=== PATIENT | male | born 1975 | race Caucasian/White ===

== ENCOUNTER 2018-11-21 18:00 | Outpatient (REF) | payer MEDICAID, SELFPAY ==
[2018-11-21 21:53] LABS: Abs Immature Grans 0.02 k/cumm (0.0-0.09); Absolute Basophil Count 0.05 k/cumm (0.0-0.2); Absolute Eosinophil Count 0.19 k/cumm (0.0-0.7); Absolute Lymphocyte Count 3.34 k/cumm (1.2-3.4); Absolute Monocyte Count 0.58 k/cumm (0.11-0.7); Basophils % 0.5; Eosinophils % 1.9; HCT 45.5 % (40.0-50.0); HGB 15.6 g/dL (13.5-17.5); Immature Grans % 0.2; Lymphocytes % 32.8; Mean Corp. HGB Concentration 34.3 g/dL (32.0-36.0); Mean Corpuscular Hemoglobin 30.4 pg (27.0-33.0); Mean Corpuscular Volume 88.7 fL (80-95); Mean Platelet Volume 10.5 fL (8.0-11.0); Monocytes % 5.7; Neutrophils % 58.9; Platelet Count 268 x1000/uL (130-400); RBC 5.13 m/cumm (4.50-6.00); RBC Distribution Width 13.9 % (11.8-14.1); White Blood Cell Count 10.18 k/cumm (4.4-10.8)
[2018-11-21 21:59] LABS: ALT 28 U/L (12-78); AST 19 U/L (15-37); Albumin 3.7 g/dL (3.4-5.0); Alkaline Phosphatase 69 U/L (46-116); Anion Gap 9.1 mmol/L (3-11); BUN 15 mg/dL (7-18); Bilirubin, Total 0.3 mg/dL (0.2-1.0); CO2 28.9 mmol/L (21.0-32.0); CREATININE 1.09 mg/dL (0.70-1.30); Calcium 8.9 mg/dL (8.5-10.1); Chloride 104 mmol/L (98-107); Glucose 74 mg/dL (70-100); LDH 147 U/L (85-227); Lipase 87 U/L (73-393); Potassium 4.3 mmol/L (3.5-5.1); Sodium 142 mmol/L (136-145); Total Protein 7.1 g/dL (6.4-8.2)
== END 2018-11-21 18:20 ==
LOC: NCHCN 18:00
PROVIDERS: PCP Nurse Practitioner Family; Visit Provider Specialist/Technologist Athletic Trainer
DX: R10.32 Left lower quadrant pain (principal)
CPT/HCPCS: 80053; 83690; 83615; 85025

== ENCOUNTER 2019-04-15 16:48 | Emergency (ER) | payer MEDICAID, SELFPAY ==
[2019-04-15] VITALS (26 sets, daily range): BP systolic 106–158; BP diastolic 82–107; PULSE 72–84; RESP 12; TEMP 37; O2SAT 92–97
--- NOTE | 2019-04-15 17:11 | W.ED.GENAD ---
Discharge Plan Disposition Patient Disposition: HOME Condition: Fair Discharge Details Chief Complaint: Nk/Back Pain Clinical Impression: Chest wall contusion, Incidental pulmonary nodule, Adrenal nodule Primary Care Provider: Aaron Alonzo ED Provider: Laurita Mosqueda Discharge Instructions Instructions: Contusion in Adults (ED) Additional Instructions: Encourage hydration. Tylenol and ibuprofen as needed for discomfort. Gentle stretching and frequent ambulation. Ice to affected area. In regard to the pulmonary nodules, you will need to follow-up in this with a primary care. Please follow-up with them in the next week for reevaluation of your trauma. There was plaque noted in your aorta, you will need to follow-up with your primary care to discuss further testing and possible lifestyle modifications. Stop smoking. If you develop fever/chills, increased pain, shortness of breath, difficulty breathing or other new/worsening symptoms please seek care urgently once again. Referrals: Aaron Alonzo [Primary Care Provider] - Medical Decision Making Patient is a 43 year old male presenting today for evaluation of traumatic injury. He reports that this morning around 7:00, he was walking out of his house and he fell through his deck. States that he fell proximate 2.5 feet into the deck, landing his right side. He has a 12 cm linear abrasion to the right lateral side of the lower chest wall extending into the abdomen. He is tender along this area as well as in the right upper quadrant. No peritoneal findings. Lung sounds are clear in all frankel. He is nontoxic-appearing. He denies other injuries from the incident. Denies loss of conscious, did not strike his head. Denies any pain in his neck. No injury to any extremities. No change in bowel or bladder habits. Denies any nausea or vomiting. Is also endorsing pain in the back primarily near the area of T6-T10. Patient reports that this is chronic but seems slightly worse today since the incident. Denies any shortness of breath. Was able to go to work today. Did not take anything for his discomfort. This patient is having tenderness in the right upper quadrant as well as the chest, plan to obtain imaging. Contacted by radiologist is concerned for small mural density anterior proximal descending thoracic aorta medially distal to the arch. Advised that this may be plaque with possible traumatic injury to the wall of the aorta cannot be excluded. Recommended correlation with COLIN versus CT in 24 hours. Plan to consult with trauma Also noted on the CT here multiple pulmonary nodules as well as nodule in the left adrenal. Discussed these findings with the patient. He is an active smoker, smokes 1.5 packs/day. Advised he will need follow-up with this with primary care and likely have repeat imaging at the advisement of radiologist Spoke with Dr. Smart who reviewed the images with his radiologist. They advised that this is a plaque. They advised that there is no inflammation around this and was actually in the wall of the aorta. He advised it appears nontraumatic and that they would not recommend any reimaging. They did advise the patient to have his triglycerides checked and follow-up for routine health maintenance Discussed recommendation of trauma surgeon and radiologist at [facility] with the patient. I encouraged hydration. He will follow-up regarding the nodules in the lung as well as the adrenal gland. He will follow-up to have routine health maintenance as advised by trauma surgeon. I encouraged smoking cessation. In regard to his contusion, encourage rest, ice, elevation. Advised he will likely be quite stiff tomorrow and encouraged gentle stretching and frequent ambulation. He was given return precautions. All his questions and concerns were addressed and he is in agreement with this plan. Patient ambulated out of the department and appears quite comfortable. HPI General Mode of arrival: ambulatory. Date/Time Provider Initiated Documentation: 04/15/19 17:11. Limitations to Documentation: no limitations. Information obtained by: patient and RN notes reviewed. History of Present Illness 43 year old M presents to the emergency department with the chief complaint of right rib and RUQ pain after trauma, described as moderate, Quality is described as aching, and is localized to the chest, back and abdomen. Patient reports no radiation. Patient started experiencing this hour(s) (0700) and it has been constant. Immobilization improves symptom(s), Movement worsens symptoms . Patient notes chest pain (right lower side associated with trauma) and rash (abrasion right side of chest); denies cough, diaphoresis, fever/chills, headaches, loss of appetite, nausea/vomiting (had immediately after, since resolved), shortness of breath and weakness. Patient did receive the following treatments prior to arrival, none Related Data Allergies Allergy/AdvReac Type Severity Reaction Status Date / Time No Known Allergies Allergy Unverified 06/12/14 14:15 Review of Systems Constitutional Reports as per HPI, Denies chills, Denies fatigue, Denies fever(s), Denies headache(s) and Denies weakness Eyes Reports as per HPI, Denies blurry vision, Denies change in vision and Denies loss of vision ENT Denies abnormal hearing and Denies headache(s) Cardiovascular Reports as per HPI, Reports chest pain, Denies pedal edema, Denies radiating jaw, neck or arm pain, Denies palpitations, Denies dyspnea and Denies dyspnea on exertion Respiratory Reports as per HPI, Denies cough, Denies pain on inspiration, Denies pain with cough, Denies dyspnea and Denies dyspnea on exertion Gastrointestinal Reports as per HPI, Reports abdominal pain (RUQ pain at area of abrasion), Denies nausea and Denies vomiting Genitourinary Reports as per HPI and Denies urinary incontinence Musculoskeletal Reports as per HPI Integumentary/Breasts Reports as per HPI and Reports wounds (abrasion to right side of chest wall) Neurologic Reports as per HPI, Denies abnormal hearing, Denies abnormal movements, Denies abnormal speech, Denies headache(s), Denies lack of coordination, Denies focal weakness, Denies loss of vision, Denies seizure-like activity, Denies paresthesias and Denies weakness Endocrine Denies fatigue and Denies palpitations [facility] Social History Smoking/Tobacco Use Status: Current every day Drug use: Never Exam Const General: cooperative, healthy appearing, comfortable, no acute distress, well developed and well groomed Nutritional Appearance: average body habitus and well nourished Orientation: alert, awake and oriented x3 HENNC Head: normal to inspection, no palpable skull fracture, normocephalic and atraumatic Ears: hearing grossly normal bilaterally, external ears normal and TM's normal bilaterally General nose exam: external nose normal Mouth: oral mucosae normal, lip normal and tongue normal Throat: posterior oropharynx normal Eyes General: appearance normal, both eyes and all related structures Visual Frankel: normal visual frankel by confrontation Alignment and Position: alignment normal Periorbital: periorbital findings normal Eyelids: eyelids normal Conjunctivae: conjunctivae normal Pupils: PERRL EOM: EOM intact bilaterally Neck Neck: normal visual inspection, full ROM, no lymphadenopathy, no meningeal signs, trachea midline and supple Chest Chest: abnormal inspection of the chest (12cm linear area of abrasion right lower chest wall), normal palpation of entire chest wall, no crepitus and localized rib tenderness with anteroposterior compression (tenderness around area of abrasion) Resp Effort & Inspection: normal respiratory effort, able to speak in complete sentences and no respiratory distress Auscultation: clear to auscultation bilaterally, no rales, no rhonchi and no wheezes Cardio Rate: regular rate Rhythm: regular rhythm Heart Sounds: S1 normal and S2 normal GI Inspection: normal to inspection, no abdominal wall ecchymosis, no edema and non-distended Palpation: soft, no hepatosplenomegaly, not firm, no guarding, no pulsatile masses, not rigid and tender in the RUQ; Chavez's sign negative and with no rebound tenderness Auscultation: normal bowel sounds Back/Spine/Pelvis Back: no CVA tenderness Cervical Spine: normal cervical lordosis and cervical ROM normal Thoracic/Lumbar Spine: thoraco-lumbar ROM normal, straight leg raise negative bilaterally, No thoraco-lumbar ROM limited, No thoraco-lumbar spasm and thoracic spinal tenderness (T6-T10) Pelvis: no pain with anterior-posterior compression and no pain with lateral compression Skin Trauma: abrasion (as above) Neuro General: alert, awake, oriented x3, gait normal, tone normal and moves all extremities Cranial Nerves: CN's II-XI intact bilaterally Cognition: normal cognition Speech: speech normal Gait: normal gait Motor: muscle tone normal throughout and strength 5/5 throughout Sensory Exam: no sensory deficits noted (no saddle paresthesias) Extrem General: normal to inspection, full ROM, normal capillary refill, no pedal edema and no calf tenderness Psych Appearance: grossly normal and well kempt Mental Status: mental status grossly normal Speech and Movement: speech and movement normal
--- NOTE | 2019-04-15 17:19 | DI.CT_ITS ---
SYMPTOM/DIAGNOSIS: TRAUMA, PAIN CHEST, ABDOMEN AND PELVIC CT: CT scan of the chest, abdomen and pelvis was performed following the uneventful administration of intravenous contrast material. No priors for comparison. ABDOMEN AND PELVIS: There is diffuse decreased attenuation of the liver suspicious for hepatic steatosis. No evidence of a hepatic mass or laceration is seen. The portal, superior mesenteric and splenic veins are patent. The gallbladder is negative. There is no biliary ductal dilatation. The pancreas and peripancreatic soft tissues are unremarkable as are the spleen and kidneys, ureters and bladder. Reproductive organs are unremarkable. The right adrenal gland is unremarkable. There is a 1.6 by 1.2 cm. hypodense left adrenal nodule. The abdominal aorta is of normal caliber. No significant abdominal or pelvic adenopathy, ascites or pneumoperitoneum is seen. The bowel shows no evidence of obstruction or inflammation. There is a normal retrocecal appendix present. No fracture or dislocation is seen in the lumbar spine. No pelvic fracture is identified. The soft tissues are unremarkable. IMPRESSION: 1. No evidence of acute abdominal or pelvic injury. 2. Decreased attenuation of the liver suggestive of hepatic steatosis. 3. Left adrenal nodule. Please correlate with the patient's clinical history. Follow up examination may be considered for re- evaluation of the left adrenal nodule. This may include a noncontrast CT scan of the abdomen and/or an MRI examination. CHEST: The thoracic aorta is of normal caliber. There is a small area of decreased attenuation along the anterior wall of the descending thoracic aorta (series 7, image 250). The remainder of the thoracic aorta is intact. Heart size is within normal limits. No significant pericardial effusion is seen. No significant thoracic adenopathy, pleural effusion or pneumothorax is identified. The tracheobronchial tree is unremarkable. No focal infiltrates are seen in the lungs. There are several non calcified pulmonary nodules present. The largest is associated with the right minor fissure and measures 0.9 cm. in diameter. There is a 0.7 cm. nodule in the right middle lobe (series 7, image 391). There is a small nodule seen adjacent to the left major fissure and a 0.6 cm. non calcified pulmonary nodule in the left lower lobe (series 7, image 391). No fracture is identified. IMPRESSION: 1. No evidence of acute thoracic injury. 2. Small mural density at the anterior proximal descending thoracic aorta. This may represent non calcified mural plaque. Traumatic injury cannot be excluded. Follow up as clinically appropriate. This may include a follow up CT scan of the chest with contrast in 24 hours or transesophageal echocardiogram. 3. Pulmonary nodules. Following assessment for patient risk factors, a follow up CT scan should be considered in 3-6 months should be considered for re-evaluation.
[2019-04-15] MEDS: MORPHine 10 MG/ML VIAL 2 MG IVP (17:27)
[2019-04-15] MEDS: Normal Saline 1,000 ML 1000 ML IV (17:28)
[2019-04-15] MEDS: Omnipaque 350 MG/ML 100 ML BTL IJ (17:50)
--- NOTE | 2019-04-15 17:58 | ED.GENADUL_ITS ---
Discharge Plan Disposition Patient Disposition: HOME Condition: Fair Discharge Details Chief Complaint: Nk/Back Pain Clinical Impression: Chest wall contusion, Incidental pulmonary nodule, Adrenal nodule Primary Care Provider: Aaron Alonzo ED Provider: Laurita Mosqueda Discharge Instructions Instructions: Contusion in Adults (ED) Additional Instructions: Encourage hydration. Tylenol and ibuprofen as needed for discomfort. Gentle stretching and frequent ambulation. Ice to affected area. In regard to the pulmonary nodules, you will need to follow-up in this with a primary care. Please follow-up with them in the next week for reevaluation of y our trauma. There was plaque noted in your aorta, you will need to follow-up with your primary care to discuss further testing and possible lifestyle modifications. Stop smoking. If you develop fever/chills, increased pain, shortness of breath, difficulty breathing or other new/worsening symptoms please seek care urgently once again. Referrals: Aaron Alonzo [Primary Care Provider] - Medical Decision Making Patient is a 43 year old male presenting today for evaluation of traumatic injury. He reports that this morning around 7:00, he was walking out of his house and he fell through his deck. States that he fell proximate 2.5 feet into the deck, landing his right side. He has a 12 cm linear abrasion to the right lateral side of the lower chest wall extending into the abdomen. He is tender along this area as well as in the right upper quadrant. No peritoneal findings. Lung sounds are clear in all frankel. He is nontoxic-appearing. He denies other injuries from the incident. Denies loss of conscious, did not strike his head. Denies any pain in his neck. No injury to any extremities. No change in bowel or bladder habits. Denies any nausea or vomiting. Is also endorsing pain in the back primarily near the area of T6-T10. Patient reports that this is chronic but seems slightly worse today since the incident. Denies any shortness of breath. Was able to go to work today. Did not take anything for his discomfort. This patient is having tenderness in the right upper quadrant as well as the chest, plan to obtain imaging. Contacted by radiologist is concerned for small mural density anterior proximal descending thoracic aorta medially distal to the arch. Advised that this may be plaque with possible traumatic injury to the wall of the aorta cannot be excluded. Recommended correlation with [facility] versus CT in 24 hours. Plan to consult with trauma Also noted on the CT here multiple pulmonary nodules as well as nodule in the left adrenal. Discussed these findings with the patient. He is an active smoker, smokes 1.5 packs/day. Advised he will need follow-up with this with primary care and likely have repeat imaging at the advisement of radiologist Spoke with Dr. Smart who reviewed the images with his radiologist. They advised that this is a plaque. They advised that there is no inflammation around this and was actually in the wall of the aorta. He advised it appears nontraumatic and that they would not recommend any reimaging. They did advise the patient to have his triglycerides checked and follow-up for routine health maintenance Discussed recommendation of trauma surgeon and radiologist at [facility] with the patient. I encouraged hydration. He will follow-up regarding the nodules in the lung as well as the adrenal gland. He will follow-up to have routine health maintenance as advised by trauma surgeon. I encouraged smoking cessation. In regard to his contusion, encourage rest, ice, elevation. Advised he will likely be quite stiff tomorrow and encouraged gentle stretching and frequent ambulation. He was given return precautions. All his questions and concerns were addressed and he is in agreement with this plan. Patient ambulated out of the department and appears quite comfortable. HPI General Mode of arrival: ambulatory . Date/Time Provider Initiated Documentation: 04/15/19 17:11 . Limitations to Documentation: no limitations . Information obtained by: patient and RN notes reviewed . History of Present Illness 43 year old M presents to the emergency department with the chief complaint of right rib and RUQ pain after trauma, described as moderate, Quality is described as aching, and is localized to the chest, back and abdomen. Patient reports no radiation. Patient started experiencing this hour(s) (0700) and it has been constant. Immobilization improves symptom(s), Movement worsens symptoms . Patient notes chest pain (right lower side associated with trauma) and rash (abrasion right side of chest); denies cough, diaphoresis, fever/chills, headaches, loss of appetite, nausea/vomiting (had immediately after, since resolved), shortness of breath and weakness. Patient did receive the following treatments prior to arrival, none Related Data Allergies Allergy/AdvReac Type Severity Reaction Status Date / Time No Known Allergies Allergy Unverified 06/12/14 14:15 Review of Systems Constitutional Reports as per HPI, Denies chills, Denies fatigue, Denies fever(s), Denies headache(s) and Denies weakness Eyes Reports as per HPI, Denies blurry vision, Denies change in vision and Denies loss of vision ENT Denies abnormal hearing and Denies headache(s) Cardiovascular Reports as per HPI, Reports chest pain, Denies pedal edema, Denies radiating jaw, neck or arm pain, Denies palpitations, Denies dyspnea and Denies dyspnea on exertion Respiratory Reports as per HPI, Denies cough, Denies pain on inspiration, Denies pain with cough, Denies dyspnea and Denies dyspnea on exertion Gastrointestinal Reports as per HPI, Reports abdominal pain (RUQ pain at area of abrasion), Denies nausea and Denies vomiting Genitourinary Reports as per HPI and Denies urinary incontinence Musculoskeletal Reports as per HPI Integumentary/Breasts Reports as per HPI and Reports wounds (abrasion to right side of chest wall) Neurologic Reports as per HPI, Denies abnormal hearing, Denies abnormal movements, Denies abnormal speech, Denies headache(s), Denies lack of coordination, Denies focal weakness, Denies loss of vision, Denies seizure-like activity, Denies paresthesias and Denies weakness Endocrine Denies fatigue and Denies palpitations [facility] Social History Smoking/Tobacco Use Status: Current every day Drug use: Never Exam Const General: cooperative, healthy appearing, comfortable, no acute distress, well developed and well groomed Nutritional Appearance: average body habitus and well nourished Orientation: alert, awake and oriented x3 [facility] Head: normal to inspection, no palpable skull fracture, normocephalic and atraumatic Ears: hearing grossly normal bilaterally, external ears normal and TM's normal bilaterally General nose exam: external nose normal Mouth: oral mucosae normal, lip normal and tongue normal Throat: posterior oropharynx normal Eyes General: appearance normal, both eyes and all related structures Visual Frankel: normal visual frankel by confrontation Alignment and Position: alignment normal Periorbital: periorbital findings normal Eyelids: eyelids normal Conjunctivae: conjunctivae normal Pupils: PERRL EOM: EOM intact bilaterally Neck Neck: normal visual inspection, full ROM, no lymphadenopathy, no meningeal signs, trachea midline and supple Chest Chest: abnormal inspection of the chest (12cm linear area of abrasion right lower chest wall), normal palpation of entire chest wall, no crepitus and localized rib tenderness with anteroposterior compression (tenderness around area of abrasion) Resp Effort & Inspection: normal respiratory effort, able to speak in complete sentences and no respiratory distress Auscultation: clear to auscultation bilaterally, no rales, no rhonchi and no wheezes Cardio Rate: regular rate Rhythm: regular rhythm Heart Sounds: S1 normal and S2 normal GI Inspection: normal to inspection, no abdominal wall ecchymosis, no edema and non-distended Palpation: soft, no hepatosplenomegaly, not firm, no guarding, no pulsatile m asses, not rigid and tender in the RUQ; Chavez's sign negative and with no rebound tenderness Auscultation: normal bowel sounds Back/Spine/Pelvis Back: no CVA tenderness Cervical Spine: normal cervical lordosis and cervical ROM normal Thoracic/Lumbar Spine: thoraco-lumbar ROM normal, straight leg raise negative bilaterally, No thoraco-lumbar ROM limited, No thoraco-lumbar spasm and thoracic spinal tenderness (T6-T10) Pelvis: no pain with anterior-posterior compression and no pain with lateral compression Skin Trauma: abrasion (as above) Neuro General: alert, awake, oriented x3, gait normal, tone normal and moves all extremities Cranial Nerves: CN's II-XI intact bilaterally Cognition: normal cognition Speech: speech normal Gait: normal gait Motor: muscle tone normal throughout and strength 5/5 throughout Sensory Exam: no sensory deficits noted (no saddle paresthesias) Extrem General: normal to inspection, full ROM, normal capillary refill, no pedal edema and no calf tenderness Psych Appearance: grossly normal and well kempt Mental Status: mental status grossly normal Speech and Movement: speech and movement normal
--- NOTE | 2019-04-15 18:21 | NUR.NOTE ---
Nursing Note: 4mg of Morphine administered IVP for break through pain per verbal order from provider.
--- NOTE | 2019-04-15 18:33 | DI.VRAD_ITS ---
Addendum created by Pk Abbott MD on 04/15/2019 6:38:36 PM EDT THIS REPORT CONTAINS FINDINGS THAT MAY BE CRITICAL TO PATIENT CARE. The findings were verbally communicated via telephone conference with Dr. Rausch at 6:37 PM EDT on 04/15/2019. The findings were acknowledged and understood. Initial report created on 04/15/2019 6:33:22 PM EDT EXAM: CT Chest With Contrast EXAM DATE/TIME: 04/15/2019 5:21 PM CLINICAL HISTORY: 43 years old, male; Injury or trauma; Fall; Initial encounter; Blunt trauma (contusions or hematomas); Injury details: Pain to right ribs and ruq TECHNIQUE: Imaging protocol: Axial computed tomography images of the chest with intravenous contrast. Coronal and sagittal reformatted images were created and reviewed. COMPARISON: No relevant prior studies available. FINDINGS: Lungs: Va. truman 8.7 mm nodule abutting the right minor fissure seen best on image 30 of series 4 and image 94 of series 6. 6 mm nodule in the right middle lobe seen best on image 40 of series 4 and image 103 of series 6. 4 mm left lower lobe nodule abutting the major fissure seen best on image 36 of series 4 and image 36 of series 6. 4 mm left lower lobe pulmonary nodule posteriorly at seen best on image 40 of series 4 and image 30 of series 6. Small patchy region of airspace disease in the lingula segment of the left lung. Pleural space: Normal. No pneumothorax. No pleural effusion. Heart: Normal. No cardiomegaly. No pericardial effusion. Aorta: Small mural density anterior proximal descending thoracic aorta immediately distal to the aortic arch without evidence of surrounding fluid. Lymph nodes: Unremarkable. No enlarged lymph nodes. Bones/joints: Degenerative changes of the thoracic spine without acute osseous abnormality. Soft tissues: Unremarkable. IMPRESSION: 1. Small mural density anterior proximal descending thoracic aorta immediately distal to the arch. In view of the lack of atherosclerotic plaque noncalcified mural plaque is possible but traumatic injury to the wall of the aorta cannot be totally excluded. Recommend correlation with transesophageal echocardiogram and followup CT of the chest with contrast in 24 hours. 2. Multiple bilateral pulmonary nodules. For patients at low risk (minimal or absent history of smoking and of other known risk factors), recommend CT at 3-6 months, then consider CT at 18-24 months. For patients at high risk (history of smoking or of other known risk factors), recommend CT at 3-6 months, then CT at 18-24 months. (Howard et al., Fleischner Society, 2017) EXAM: CT Abdomen and Pelvis With Contrast EXAM DATE/TIME: 04/15/2019 5:21 PM CLINICAL HISTORY: 43 years old, male; Injury or trauma; Fall; Initial encounter; Blunt trauma (contusions or hematomas); Injury details: Pain to right ribs and ruq TECHNIQUE: Imaging protocol: Axial computed tomography images of the abdomen and pelvis with intravenous contrast. Coronal and sagittal reformatted images were created and reviewed. COMPARISON: No relevant prior studies available. FINDINGS: ABDOMEN: Liver: There is a diffuse decrease in hepatic parenchymal density, consistent with fatty infiltration. Gallbladder and bile ducts: Normal. No calcified stones. No ductal dilation. Pancreas: Normal. No ductal dilation. Spleen: Normal. No splenomegaly. Adrenals: 15.8 x 12.1 mm the left adrenal nodule. Kidneys and ureters: Normal. No hydronephrosis. Stomach and bowel: Normal. No obstruction. No mucosal thickening. Appendix: No evidence of appendicitis. PELVIS: Bladder: Unremarkable as visualized. Reproductive: Unremarkable as visualized. ABDOMEN and PELVIS: Intraperitoneal space: Normal. No free air. No significant fluid collection. Bones/joints: Degenerative changes of the lumbar spine without acute osseous abnormality. Soft tissues: Unremarkable. Vasculature: Normal. No abdominal aortic aneurysm. Lymph nodes: Normal. No enlarged lymph nodes. IMPRESSION: 1. No current CT evidence of intra-abdominal trauma. 2. Fatty liver changes. Please correlate with the clinical laboratory findings. 3. Left adrenal nodule as described above. Please correlate with patient's clinical history and recommend followup noncontrast CT of the abdomen versus MRI. Dictated and Authenticated by: Pk Abbott MD. Ordering:KORI Shay MD
== END 2019-04-15 22:01 | disposition home or self-care (01) ==
PROVIDERS: Emergency Provider Physician Assistant; PCP Specialist/Technologist Athletic Trainer
DX: S20.211A Contusion of right front wall of thorax, initial encounter (principal); R91.1 Solitary pulmonary nodule; E27.9 Disorder of adrenal gland, unspecified; F17.210 Nicotine dependence, cigarettes, uncomplicated; W13.8XXA Fall from, out of or through other building or structure, initial encounter
CPT/HCPCS: 36415; 74177; 96361; 96374; 99285; 71260; 99284; J2270; J3490

== ENCOUNTER 2019-11-16 16:29 | Emergency (ER) | payer MEDICAID, SELFPAY ==
[2019-11-16 16:35] VITALS: BP 144/79; PULSE 79; RESP 14; TEMP 36.6; O2SAT 94
--- NOTE | 2019-11-16 17:28 | W.ED.GENAD ---
Discharge Plan Disposition Patient Disposition: OTHER Discharge Details Chief Complaint: Orthopedic Clinical Impression: Acute knee pain Primary Care Provider: Aaron Alonzo ED Provider: Lashonda Carranza Home Meds and New Rx's Prescriptions: No Action No Known Home Meds RF: 0 Discharge Data Discharge Date/Time-TO BE ENTERED AT DEPARTURE: 11/16/19 19:33 Medical Decision Making Is a 44-year-old patient presenting for complaints of right knee pain for the last 2 days. Patient thinks he may have twisted his knee but denies obvious injury or trauma. Patient reports a limping gait. No locking, cracking or giving out. Patient has no ill feeling whatsoever. On exam patient does have a very mild right knee effusion. Some limits. Range of motion with flexion. Nothing to indicate a joint infection. Patient does have pain with valgus stress. No obvious laxity on exam. no lower leg findings. X-ray ordered. Patient was offered Motrin or Tylenol and declined. Unfortunately as I was reviewing patient's x-ray results which had just returned which did take approximately 2 hours to result via V rad patient became angry with the length of stay and walked out of the emergency room. I tried to provide the patient his results had just returned but he was quite angry with the amount of time spent in the ER and left. HPI General Date/Time Provider Initiated Documentation: 11/16/19 17:23. HPI Narrative: Is a 44-year-old patient presenting complaining of right knee pain. Patient denies any specific injury or trauma but does report he may have twisted his knee a few days ago. Patient presents complaining of only focal right knee pain. Complaining of mild swelling. Limping gait. Patient denies any radiating symptoms beyond the knee. Denies any lower leg swelling or pain. Patient denies any fever, chills or ill feeling. Denies locking, cracking or giving out. Related Data Home Medications Medication Instructions Recorded Confirmed Unknown [No Known Home Meds] 11/16/19 11/16/19 Allergies Allergy/AdvReac Type Severity Reaction Status Date / Time No Known Allergies Allergy Unverified 11/16/19 16:38 General Stated Complaint: Orthopedic JACIEL: 4 Review of Systems All systems reviewed & are unremarkable except as noted in HPI and below Constitutional Constitutional: Denies chills and Denies fever(s) Musculoskeletal Musculoskeletal: Reports abnormal gait (Limping), Denies back pain, Reports joint swelling, Reports limited range of motion, Denies numbness, Denies radiating pain into limb, Reports stiffness and Denies tingling Integumentary/Breasts Skin/Breast: Denies erythema and Denies wounds Neurologic Neurologic: Reports abnormal gait (Limping), Denies numbness and Denies tingling [facility] Social History Smoking/Tobacco Use Status: Current every day Tobacco Type: cigarettes Alcohol Intake: current Alcohol Intake frequency: a few times a month Drug use: Never Substance use type: does not use Do you feel safe at home: Yes Do you feel safe in your relationship?: Yes Exam Narrative Exam Narrative: CONST: Healthy appearing patient, in no acute distress. Well hydrated. Alert and oriented. MUSCULOSKELETAL: Limping gait. Patient with straight leg raise intact. Strength intact. Patient with right knee effusion which is mild. Mild medial and lateral joint line tenderness. Patient with smooth range of motion of the patella. Patient has no obvious laxity on exam. Mild pain with valgus stress. Patient does have mild posterior knee swelling. No erythema. No warmth. Nothing to indicate septic joint. Patient does have pain with range of motion specifically with deep flexion. No calf pain with palpation, yanes pain with palpation, ankle pain with palpation. No distal edema. Pulses intact distally SKIN: Normal. Dry. No rashes. NEURO: Alert and awake. Speech clear. PSYCH: Normal affect. Cooperative. Course Vital Signs Vital signs: Vital Signs Temperature 36.6 C 11/16/19 16:35 Pulse 79 11/16/19 16:35 Respiratory Rate 14 11/16/19 16:35 Blood Pressure 144/79 H 11/16/19 16:35 Pulse Oximetry 94 L 11/16/19 16:35 Temperature 36.6 C 11/16/19 16:35 Temperature Source Temporal Artery Scan 11/16/19 16:35 Pulse 79 11/16/19 16:35 Respiratory Rate 14 11/16/19 16:35 Respiratory Effort Non-Labored 11/16/19 16:37 Blood Pressure 144/79 H 11/16/19 16:35 Blood Pressure Position Sitting 11/16/19 16:35 Pulse Oximetry 94 L 11/16/19 16:35 Oxygen Delivery Method Room Air 11/16/19 16:35 Oxygen Flow Rate 0 11/16/19 16:35 Pain Level 8 11/16/19 16:35
--- NOTE | 2019-11-16 17:44 | DI.RAD_ITS ---
EXAM: XR KNEE RT 4V AP,LAT,HASEEB,PAT INDICATION: pain, possible twisting injury. COMPARISON: No exams were available for comparison TECHNIQUE: 2D digital imaging was performed. FINDINGS: No fracture or joint effusion is seen. There are mild degenerative changes. IMPRESSION: Negative right knee.
--- NOTE | 2019-11-16 19:21 | DI.VRAD_ITS ---
PROCEDURE INFORMATION: Exam: XR Left Knee Exam date and time: 11/16/2019 5:47 PM Age: 44 years old Clinical indication: Knee; Right; Patient HX: Atraumatic pain TECHNIQUE: Imaging protocol: XR Left knee. Views: 4 or more views. COMPARISON: No relevant prior studies available. FINDINGS: Bones/joints: No acute fracture or dislocation. A trace joint effusion is seen superiorly. No evidence of significant degenerative changes. Soft tissues: Normal. IMPRESSION: No acute fracture or dislocation. Trace joint effusion. If there is persistent concern, an MRI may be obtained for further evaluation. Dictated and Authenticated by: Joya Velasquez MD. Ordering:ARUN Gallego MD
--- NOTE | 2019-11-16 19:32 | NUR.NOTE ---
Pt ambulated out of dept. RUPERTO Carranza out to ask pt to come back in for results, states, you've wasted enough of my time today. Ambulated to exit wiht steady gait.
== END 2019-11-16 19:33 | disposition other institution (70) ==
PROVIDERS: Emergency Provider Physician Assistant; PCP Specialist/Technologist Athletic Trainer
DX: M25.561 Pain in right knee (principal); Z53.29 Procedure and treatment not carried out because of patient's decision for other reasons
CPT/HCPCS: 99283; 73564

== ENCOUNTER 2019-11-25 01:18 | Outpatient (CLI) | payer MEDICAID, SELFPAY ==
[2019-11-25] MEDS: Omnipaque 350 MG/ML 50 ML BTL PO (07:52)
[2019-11-25] MEDS: Omnipaque 350 MG/ML 100 ML BTL IJ (09:17)
--- NOTE | 2019-11-25 09:25 | DI.CT_ITS ---
EXAM: CT ABDOMEN WO/W CLINICAL HISTORY: ADRENAL MASS LT, E27.8. TECHNIQUE: Imaging Protocol: Axial computed tomography images with coronal and sagittal reformatted images were created and reviewed CONTRAST MATERIAL: Intravenous: Omnipaque 350 Contrast volume:100 mL contrast route:IV - Oral: Yes COMPARISON: CT CHEST/ABD/PEL W from 04/15/2019 FINDINGS: ABDOMEN: Lung Bases: Atelectasis. Liver: Diffuse decreased attenuation consistent with fatty infiltration. No measurable mass. Gallbladder and biliary tract: No radiodense calculus or dilation. Pancreas: Normal density, no abnormal calcifications or inflammatory process. Spleen: Normal. Kidneys: Normal size, contour and axis. No radiodense stones or obstructive uropathy. No masses seen. Adrenal glands: There is again seen a 1.6 x 1.2 centimeter hypodense left adrenal nodule. On the non contrast images, there are Hounsfield units of -17. Following contrast administration, there is grea ter than 50 percent washout on the 15 minutes delayed images. The finding is most consistent with an adrenal adenoma. Abdominal Aorta: Abdominal portion non-dilated. Lymph nodes: Within normal limits. Bowel: Small hiatal hernia. Otherwise unremarkable. Peritoneal: No ascites or pneumoperitoneum. Bones: Degenerative changes seen in the spine. IMPRESSION: 1. Findings most consistent with a left adrenal adenoma. 2. Hepatic steatosis. DATA REPOSITORY: All CT scans at this facility are submitted to the National Radiology Data Registry (NRDR) Dose Index Registry (DIR) with the [employer] (ACR). RADIATION OPTIMIZATION: All CT scans at this facility use at least one of these dose optimization te chniques: automated exposure control; mA and/or kV adjustment per patient size (includes targeted exa ms where dose is matched to clinical indication); or iterative reconstruction.
== END 2019-11-25 01:38 ==
PROVIDERS: PCP Specialist/Technologist Athletic Trainer; Visit Provider Physician Assistant Medical
DX: E27.8 Other specified disorders of adrenal gland (principal); K76.0 Fatty (change of) liver, not elsewhere classified; D35.02 Benign neoplasm of left adrenal gland
CPT/HCPCS: 74170; J3490; Q9967

== ENCOUNTER 2021-02-09 09:35 | Outpatient (REF) | payer MEDICAID, SELFPAY ==
[2021-02-09 16:17] LABS: Anion Gap 4.3 mmol/L (3-11); BUN 18 mg/dL (7-18); CO2 24.7 mmol/L (21.0-32.0); Calcium 8.6 mg/dL (8.5-10.1); Calculated LDL 130 mg/dL (<100); Chloride 106 mmol/L (98-107); Cholesterol 202 mg/dL (<200); Glucose 100 mg/dL (74-106); HDL Cholesterol 44 mg/dL (40-60); Potassium 4.2 mmol/L (3.5-5.1); Sodium 135 mmol/L (136-145); Triglyceride 140 mg/dL (<150)
== END 2021-02-09 09:36 | disposition home or self-care (01) ==
LOC: NCHCN 09:35
PROVIDERS: PCP Specialist/Technologist Athletic Trainer; Visit Provider Nurse Practitioner Family
DX: Z13.220 Encounter for screening for lipoid disorders (principal); Z13.228 Encounter for screening for other metabolic disorders; Z13.1 Encounter for screening for diabetes mellitus; R94.2 Abnormal results of pulmonary function studies; E27.8 Other specified disorders of adrenal gland; R91.1 Solitary pulmonary nodule
CPT/HCPCS: 80048; 80061

== ENCOUNTER 2021-02-23 01:50 | Outpatient (CLI) | payer MEDICAID, SELFPAY ==
--- NOTE | 2021-02-23 09:25 | DI.CT_ITS ---
EXAM: CT CHEST W CLINICAL HISTORY: PULMONARY NODULE, R91.1, F/U ABNL CT. TECHNIQUE: Multi planar reconstructions were performed. CONTRAST MATERIAL: Omnipaque 350; 75 cc COMPARISON: CT CT CHEST/ABD/PEL W from 04/15/[address] ABDOMEN WO/W from 11/25/[address] scan April 2019 FINDINGS: CHEST: LUNGS: There is a noncalcified right upper lobe nodule measuring approximately 10 x 5 millimeters, ex hibiting minimal if any significant change compared to the April 2019 study. Below this in the right middle lobe there is and another nodule measuring 6 millimeters, also unchanged. There are no new pu lmonary nodules. Mild benign-appearing pleural base markings are noted in the posterior basal segmen t of the right lower lobe. No pleural effusions. In the opposite-left lung there are mild increased markings in the lingular segment which are unchang ed. There is a peripherally located 2 millimeter nodule in the lateral left lung base which is also unchanged from April 2019. This at the junction of the lateral basal and anterior basal segments. No pleural effusions on either side MEDIASTINUM: There is no prominent hilar adenopathy. No adenopathy in the anterior mediastinal fat. Small subcarinal lymph nodes are noted. Unchanged from previous. There is no significant axillary adenopathy. No supraclavicular adenopathy. Visualized thyroid unremarkable. CARDIAC: Heart size is normal. There is no pericardial effusion.No coronary artery calcification not ed. Caliber of the thoracic aorta is within normal limits. Previously described mural thrombus in t he proximal descending thoracic aorta appears unchanged. There is no obvious dissection. VISUALIZED UPPER ABDOMEN:Hepatic steatosis. Left adrenal nodule. See separate report OSSEOUS: No significant osseous lesions.. IMPRESSION: 1. Compared to the prior CT scan of April 2019 there are stable unchanged bilateral lung nodules as de scribed above. These are unchanged and there are no new nodules nor pleural effusions nor new signif icant intrathoracic adenopathy. 2. See separate abdominal CT report dictated today. RADIATION DOSE DELIVERED: Total DLP DATA REPOSITORY: All CT scans at this facility are submitted to the National Radiology Data Registry (NRDR) Dose Index Registry (DIR) with the [employer] (ACR). RADIATION OPTIMIZATION: All CT scans at this facility use at least one of these dose optimization te chniques: automated exposure control; mA and/or kV adjustment per patient size (includes targeted exa ms where dose is matched to clinical indication); or iterative reconstruction.
[2021-02-23] MEDS: Normal Saline - Diluent 50 ML VIAL IV (09:44)
--- NOTE | 2021-02-23 09:45 | DI.CT_ITS ---
EXAM: CT ABDOMEN WO/W CLINICAL HISTORY: LT ADRENAL MASS,E27.8,F/U ABNL CT TECHNIQUE: Without and with IV contrast. One hundred mL Visipaque 320 COMPARISON: CT CT ABDOMEN WO/W from 11/25/2019 FINDINGS: Visualized lung bases: There is a noncalcified 2-3 millimeter nodule in the left lung base posterior basal segment (series 5/image 11). This is unchanged from the November 2019 study. In the abdomen there is no ascites. Liver is again noted be hypodense implying steatosis. There are no discrete focal hepatic lesions id entified. There is no obvious gallbladder pathology. The CBD is not dilated. No discrete focal les ions seen in the pancreas. The spleen is not enlarged. No splenic lesions. No new significant find ings in the kidneys. Abdominal aorta is not enlarged. No para-aortic adenopathy. Adrenals: Right adrenal gland is unremarkable. Size and configuration of the previously described le ft adrenal nodule are unchanged. Precontrast images reveal the nodule to be hypodense consistent wit h probable adenoma. Osseous: There are no significant osseous lesions evident. IMPRESSION: 1. Previously described left adrenal nodule appears unchanged, further evidence that is probably a be nign adenoma. If clinically indicated further study with noncontrast MRI using chemical shift imagin g in and out of phase sequences can be performed for added specificity. 2. Hepatic steatosis is again noted. There no discrete focal hepatic lesions identified.
== END 2021-02-23 02:10 ==
PROVIDERS: PCP Nurse Practitioner Family; Visit Provider Nurse Practitioner Family
DX: E27.8 Other specified disorders of adrenal gland (principal); D35.02 Benign neoplasm of left adrenal gland; K76.0 Fatty (change of) liver, not elsewhere classified; R91.1 Solitary pulmonary nodule
CPT/HCPCS: 71260; 74170

== ENCOUNTER 2021-06-13 02:56 | Outpatient (CLI) | payer MEDICAID, SELFPAY ==
[2021-06-13] MEDS: Albuterol HFA 18 GM 200 PUFF INH IH (16:29)
[2021-06-13] MEDS: Methacholine 100 MG VIAL IH (16:29)
[2021-06-13] MEDS: Inhaler, Assist Device 1 EACH MC (16:30)
--- NOTE | 2021-06-14 10:43 | W.PFT ---
Date of service: 06/13/21 Time of Service: 15:11 Pulmonary Function Test Result Requesting Provider Yesy Bowling Interpretation Spirometry: There is mild airflow limitation based on volume time graphs, although technically the FEV1 over FVC ratio is slightly over the lower limit of normal at baseline. There was a significant methacholine response at 1 mg/mL. Impression Positive methacholine study with baseline mild airflow limitation. Clinical Correlation therefore is recommended.
--- NOTE | 2021-06-14 10:47 | W.PFT ---
Date of service: 06/13/21 Time of Service: 15:11 Pulmonary Function Test Result Requesting Provider Yesy Bowling Interpretation Spirometry: There is mild airflow limitation as demonstrated by volume-time loops even though the FEV1/FVC ratio is over the lower limit of normal slightly. Lung Volumes: Lung volumes are normal with the exception of an elevated residual volume indicating air trapping and an extremely low ERV which is likely due to the patient's obesity. Diffusion Capacity: The diffusion is reduced Airway Pressure: Airway resistance is normal Impression PFTs are consistent with mild airflow limitation and a reduced diffusion. Clinical Correlation therefore is recommended.
== END 2021-06-13 02:57 | disposition home or self-care (01) ==
LOC: RT 02:56
PROVIDERS: PCP Nurse Practitioner Family; Visit Provider Nurse Practitioner Family
DX: F17.210 Nicotine dependence, cigarettes, uncomplicated (principal); R94.2 Abnormal results of pulmonary function studies
CPT/HCPCS: 94060; 94726; 94729; 95070; 94010; J7674

== ENCOUNTER 2021-08-09 19:53 | Outpatient (REF) | payer MEDICAID, SELFPAY ==
[2021-08-10 20:25] LABS: COVID-19 RT-PCR UVMMC Result Negative (Negative)
== END 2021-08-09 19:54 | disposition home or self-care (01) ==
LOC: NCHCN 19:53
PROVIDERS: PCP Nurse Practitioner Family; Visit Provider Nurse Practitioner Family
DX: Z20.822 Contact with and (suspected) exposure to COVID-19 (principal)
CPT/HCPCS: U0003

== ENCOUNTER 2021-09-02 16:45 | Outpatient (REF) | payer MEDICAID, SELFPAY ==
[2021-09-02 20:09] LABS: Abs Immature Grans 0.02 10^3/uL (0.0-0.06); Absolute Basophil Count 0.06 10^3/uL (0.0-0.2); Absolute Lymphocyte Count 2.57 10^3/uL (1.2-3.4); Absolute Monocyte Count 0.56 10^3/uL (0.1-0.8); Absolute Neutrophil Count 7.86 10^3/uL (1.2-6.7); Basophils % 0.5; Eosinophils % 0.9; HCT 47.9 % (40.0-50.0); HGB 16.2 g/dL (13.5-17.5); Immature Grans % 0.2; MCH 30.7 pg (27.0-33.0); MCHC 33.8 % (32.0-36.0); MCV 90.7 fL (80-95); MPV 10.9 fL (8.0-11.0); Neutrophils % 70.4; Nucleated RBC 0 %; Platelet Count 213 10^3/uL (130-400); RBC 5.28 10^6/uL (4.36-5.78); RDW 13.2 % (11.8-14.1); RDW-SD 43.8 fL; WBC 11.17 10^3/uL (4.4-10.8)
[2021-09-07 12:55] LABS: IgE 8 IU/mL (<158)
== END 2021-09-02 16:46 | disposition home or self-care (01) ==
LOC: LBN 16:45
PROVIDERS: PCP Nurse Practitioner Family; Visit Provider Student in an Organized Health Care Education/Training Program
DX: J44.9 Chronic obstructive pulmonary disease, unspecified (principal)
CPT/HCPCS: 82785; 85025

== ENCOUNTER 2021-10-31 01:41 | Outpatient (CLI) | payer MEDICAID, SELFPAY ==
[2021-10-31 09:02] LABS: BE 0 mmol/L (-2-3); HCO3 25 mmol/L (22-26); pCO2 39 mmHg (35-45); pH 7.41 (7.35-7.45); pO2 81 mmHg (80-105); sO2 97 % (95-98); tCO2 22 mmol/L (23-27)
[2021-10-31 09:04] LABS: FIO2 ROOM AIR %; FIO2L ROOM AIR L; Site Right Radial
--- NOTE | 2021-10-31 11:58 | W.PFT ---
Date of service: 10/31/21 Time of Service: 09:03 Pulmonary Function Test Result Indications: COPD 6MWT Total Distance walked: 1200 feet with no stops No significant desaturations Impression: Normal 6MWT
== END 2021-10-31 01:42 | disposition home or self-care (01) ==
LOC: RT 01:41
PROVIDERS: PCP Nurse Practitioner Family; Visit Provider Student in an Organized Health Care Education/Training Program
DX: J44.9 Chronic obstructive pulmonary disease, unspecified (principal); J45.909 Unspecified asthma, uncomplicated
CPT/HCPCS: 82805; 94618; 36600

== ENCOUNTER 2022-01-31 17:01 | Outpatient (REF) | payer MEDICAID, SELFPAY ==
[2022-01-31 20:11] LABS: HCT 46.6 % (40.0-50.0); HGB 15.5 g/dL (13.5-17.5); MCH 30.2 pg (27.0-33.0); MCHC 33.3 % (32.0-36.0); MCV 90.7 fL (80-95); MPV 10.7 fL (8.0-11.0); Platelet Count 249 10^3/uL (130-400); RBC 5.14 10^6/uL (4.36-5.78); RDW 12.8 % (11.8-14.1); RDW-SD 42.8 fL; WBC 7.66 10^3/uL (4.4-10.8)
[2022-01-31 20:18] LABS: Iron 126 ug/dL (65-175); Total Iron Binding Capacity 278 ug/dL (250-450); Transferrin Sat 45 % (20-55)
[2022-01-31 20:29] LABS: Hemoglobin A1C 5.7 % (<5.7)
[2022-01-31 20:32] LABS: ALT 69 U/L (16-63); AST 37 U/L (15-37); Albumin 3.8 g/dL (3.4-5.0); Alkaline Phosphatase 91 U/L (46-116); BUN 21 mg/dL (7-18); Bilirubin, Total 0.4 mg/dL (0.2-1.0); Calculated LDL 139 mg/dL (<100); Cholesterol 242 mg/dL (<200); Ferritin 199 ng/mL (26-388); HDL Cholesterol 41 mg/dL (40-60); Total Protein 7.2 g/dL (6.4-8.2); Triglyceride 314 mg/dL (<150)
[2022-01-31 20:40] LABS: Bilirubin, Direct 0.1 mg/dL (0.0-0.2)
[2022-02-02 08:50] LABS: HBs Antibody, Quant <3.1 mIU/mL (See Note); Hepatitis B Surface Ab Negative (See Note)
[2022-02-02 09:03] LABS: Hepatitis B Surface Ag Negative (Negative)
== END 2022-01-31 17:02 | disposition home or self-care (01) ==
LOC: NCHCN 17:01
PROVIDERS: PCP Nurse Practitioner Family; Visit Provider Nurse Practitioner Family
DX: K76.0 Fatty (change of) liver, not elsewhere classified (principal)
CPT/HCPCS: 80061; 80076; 84520; 85027; 86706; 87340; 82565; 82728; 83036; 83540; 83550

== ENCOUNTER → 2022-02-06 01:00 | Outpatient (CLI) | payer MEDICAID, SELFPAY ==
--- NOTE | 2022-02-06 15:00 | ETT_ITS ---
APPROVED REPORT Exam: Exercise Treadmill Patient Location: Out-Patient Room/Bed: Stress Nurse: Isabel Winter RN Ordering Provider:JUDE JOHNSON, Contact Number: [phone] BMI: 35.72 Baseline Rhythm: Sinus Bradycardia Comment: Abnormal R wave progression, occasional PACs Indications: Lt chest pain, radiation to lt arm, smoker Medical History Medical History: Hyperlipidemia, asthma, COPD, JANIS, smoker (current), pulmonary nodule, ETOH abuse, Cardiac Medications: Albuterol sulfate, breztri aerosphere, atorvastatin Allergies: Chantix Cardiac Risk Factors: Hyperlipidemia, asthma, COPD, smoker (current), family hx Previous Cardiac Procedures: None Pretest Chest Pain Characteristics: None Exercise History: Sedentary Physical Disabilities: None Lung Sounds: Diminished lower lobes Heart Sounds: Regular Stress Test Details Test: Exercise stress testing was performed using a Ruslan protocol. Rest Stress HR Resting HR Supine: 59 bpm Max Heart Rate (APMHR): 175 bpm Resting HR Standin bpm Target HR (85% APMHR): 148 bpm Max HR Achieved: 156 bpm % of APMHR: 89 Recovery HR: 81 bpm HR response to stress: Normal HR response to stress BP Resting BP Supine: 122/84 mmHg Resting BP Standin/84 mmHg Max BP: 168/92 mmHg Recovery BP: 124/80 mmHg BP response to stress: Normal blood pressure response to stress. ECG Resting ECG: Sinus Bradycardia Ectopy: Occasional PACs Comment: Abnormal R wave progression Stress ECG: Sinus Tachycardia ST Change: No significant ST segment changes noted Arrhythmia: Frequent PACs, bigeminal PACs, occasional PVCs Recovery ECG: Sinus Rhythm Recovery ST Change: No significant ST segment changes noted Recovery Arrhythmia: Frequent PACs, bigeminal PACs, occasional PVCs Clinical Reason for Termination: Fatigue Stress Symptoms: General Fatigue, Dyspnea, Chest pain Exercise duration: 8 min58 sec Highest Stage Reached: Stage 3: 3.4 mph at 14% grade. Exercise capacity: 10.16 METs Layton Treadmill Score: 4.6 Rate Pressure Product: [id number] Stress ECG Conclusion 1. Resting electrocardiogram was within normal limits 2. Patient exercised on Ruslan protocol and completed a workload of 10.16 METS 3. Normal heart rate and blood pressure response to exercise. Patient achieved 89% predicted heart r ate for age 4. The electrocardiographic portion of the test was negative for myocardial ischemia 5. There were occasional atrial premature beats, rare PVCs Layton Treadmill Score is 4.6 which is Moderate risk. Stress Test Summary STAGE Time (mins) Speed (mph) Grade (%) HR BP SYMPTOMS METS Supine 59 122/84 Standing 60 126/84 SpO2 96% 1 3 1.7 10 101 128/86 SpO2 96% 4.6 2 6 2.5 12 122 134/88 Mild SOB, SpO2 95% 7 3 9 3.4 14 154 CP 3/10, moderate SOB, SpO2 95% 10.2 1 min recovery 124 168/92 CP 3/10, mild SOB, SpO2 98% 3 min recovery 88 162/84 CP 2/10, mild SOB, SpO2 98% 6 min recovery 88 140/82 CP 1/10, mild SOB, SpO2 97% 9 min recovery 81 124/80 CP and SOB resolved, SpO2 95%
== END ==
PROVIDERS: PCP Nurse Practitioner Family; Visit Provider Nurse Practitioner Family
DX: R07.89 Other chest pain (principal); Z72.0 Tobacco use
CPT/HCPCS: 93017

== ENCOUNTER → 2022-02-23 01:04 | Outpatient (CLI) | payer MEDICAID, SELFPAY ==
--- NOTE | 2022-02-23 07:00 | DI.US_ITS ---
Exam(s) US ABDOMEN EXAM: US ABDOMEN INDICATION: STEATOSIS OF LIVER, K76.0 COMPARISON: No exams were available for comparison TECHNIQUE: Ultrasound abdomen performed using standard protocol FINDINGS: Abdominal ultrasound was performed according to the usual protocol. The liver is normal in size and shape. No focal hepatic lesion seen. Hepatic parenchyma is mildly ec hogenic and heterogeneous, question hepatic steatosis. There is no evidence of cholelithiasis or biliary dilatation. No gallbladder wall thickening or peric holecystic fluid collection. Portal venous flow is hepatopetal. Pancreas appears intact as visualized. Spleen is unremarkable in appearance with no focal lesion. Kidneys are normal in size and shape. No renal mass, hydronephrosis, or nephrolithiasis. Abdominal aorta and IVC are of normal diameter. IMPRESSION: Possible hepatic steatosis, otherwise negative abdominal ultrasound.
== END ==
PROVIDERS: PCP Nurse Practitioner Family; Visit Provider Nurse Practitioner Family
DX: K76.0 Fatty (change of) liver, not elsewhere classified (principal)
CPT/HCPCS: 76700

== ENCOUNTER 2022-03-20 08:50 | Outpatient (CLI) | payer MEDICAID, SELFPAY ==
--- NOTE | 2022-03-20 08:45 | RT.EKG_ITS ---
APPROVED REPORT Exam: Resting ECG Reason for Exam: CP Patient Location: O HR:63 bpm ECG Measurements Heart Rate 63 AXIS MN 140 P 50 QRSd 85 QRS 37 QT 383 T 33 QTc 393 Conclusion Sinus rhythm...normal P axis, V-rate 50- 99 RSR' in V1 or V2, Otherwise normal
== END 2022-03-20 08:51 | disposition home or self-care (01) ==
LOC: DI.CARD 08:51
PROVIDERS: PCP Nurse Practitioner Family; Visit Provider Internal Medicine Cardiovascular Disease
DX: R07.89 Other chest pain (principal)
CPT/HCPCS: 93010

== ENCOUNTER → 2022-04-19 01:13 | Outpatient (CLI) | payer MEDICAID, SELFPAY ==
--- NOTE | 2022-04-19 07:00 | DI.CT_ITS ---
Exam(s) CT CHEST WO EXAM: CT CHEST WO CLINICAL HISTORY: f/u pulmonary nodules,r91.8. TECHNIQUE: Multi planar reconstructions were performed. CONTRAST MATERIAL: None COMPARISON: CT CT CHEST W from 02/23/2021 FINDINGS: CHEST: LUNGS: Previously described right upper lobe nodule is unchanged. Also unchanged small nodule right middle lobe. Mild increased pleural base markings in lateral basal segment right again noted no new right lung findings. In the opposite-left lung some atelectasis in the lingular segment is. 3 millimeter nodule lateral b omega segment left lower lobe is unchanged. No new nodules. No pleural effusions. No new findings i n the trachea and mainstem bronchi. MEDIASTINUM: No obvious hilar nor anterior mediastinal adenopathy. Slightly prominent lymph nodes in the subcarinal region are unchanged. Visualized thyroid unremarkable.No obvious axillary adenopathy CARDIAC: Heart size is normal. There is no pericardial effusion.Caliber of the thoracic aorta is wit hin normal limits. VISUALIZED UPPER ABDOMEN:Hepatic steatosis again noted. Unchanged nodule in left adrenal gland is hy podense and probably incidental adenoma. Right adrenal gland unremarkable. No splenomegaly. OSSEOUS: No significant osseous lesions.No fractures.. IMPRESSION: 1. Continued stable appearance of the bilateral small pulmonary nodules with no new lung nodules nor pleural effusions nor new intrathoracic adenopathy. 2. Stable appearance of left adrenal nodule which is probably an adenoma. 3. Hepatic steatosis again noted. RADIATION DOSE DELIVERED: 714.08mGy.cm Total DLP DATA REPOSITORY: All CT scans at this facility are submitted to the National Radiology Data Registry (NRDR) Dose Index Registry (DIR) with the [employer] (ACR). RADIATION OPTIMIZATION: All CT scans at this facility use at least one of these dose optimization te chniques: automated exposure control; mA and/or kV adjustment per patient size (includes targeted exa ms where dose is matched to clinical indication); or iterative reconstruction.
== END ==
PROVIDERS: PCP Nurse Practitioner Family; Visit Provider Student in an Organized Health Care Education/Training Program
DX: R91.8 Other nonspecific abnormal finding of lung field (principal); K74.60 Unspecified cirrhosis of liver; E27.8 Other specified disorders of adrenal gland
CPT/HCPCS: 71250

== ENCOUNTER → 2022-06-21 13:06 | Outpatient (CLI) | payer MEDICAID, SELFPAY ==
--- NOTE | 2022-06-21 | DI.RAD_ITS ---
Exam(s) XR FOOT RT COMPLETE EXAM: XR FOOT RT COMPLETE CLINICAL HISTORY: RT FOOT PAIN, M79.671, BASE OF HEEL EXTENDING INTO PLANTAR FASCIA TECHNIQUE: COMPARISON: No exams were available for comparison FINDINGS: Three views were obtained. There is an enthesophyte at the plantar fascia attachment on the calcaneu s. No other bony or soft tissue abnormality seen. IMPRESSION: RADIATION DOSE DELIVERED: Total DLP
== END ==
PROVIDERS: PCP Nurse Practitioner Family; Visit Provider Physician Assistant Medical
DX: M25.774 Osteophyte, right foot (principal)
CPT/HCPCS: 73630

== ENCOUNTER 2023-03-19 14:52 | Outpatient (REF) | payer MEDICAID, SELFPAY ==
[2023-03-19 16:51] LABS: Abs Immature Grans 0.02 10^3/uL (0.0-0.06); Absolute Basophil Count 0.08 10^3/uL (0.0-0.2); Absolute Eosinophil Count 0.23 10^3/uL (0.0-0.7); Absolute Lymphocyte Count 2.84 10^3/uL (1.2-3.4); Absolute Monocyte Count 0.49 10^3/uL (0.1-0.8); Absolute Neutrophil Count 4.51 10^3/uL (1.2-6.7); Eosinophils % 2.8; HCT 44.3 % (40.0-50.0); HGB 14.8 g/dL (13.5-17.5); Immature Grans % 0.2; Lymphocytes % 34.8; MCH 29.8 pg (27.0-33.0); MCHC 33.4 % (32.0-36.0); MCV 89 fL (80-95); MPV 10.9 fL (8.0-11.0); Neutrophils % 55.2; Platelet Count 247 10^3/uL (130-400); RBC 4.97 10^6/uL (4.36-5.78); RDW 13.3 % (11.8-14.1); RDW-SD 43.4 fL; WBC 8.17 10^3/uL (4.4-10.8)
[2023-03-19 17:36] LABS: FREE T4 0.88 ng/dL (0.76-1.46); TSH 1.03 uIU/mL (0.36-3.74)
== END 2023-03-19 14:53 | disposition home or self-care (01) ==
LOC: NCHCN 14:52
PROVIDERS: PCP Nurse Practitioner Family; Visit Provider Nurse Practitioner Family
DX: R00.1 Bradycardia, unspecified (principal)
CPT/HCPCS: 84439; 84443; 85025

== ENCOUNTER 2023-03-23 09:24 | Outpatient (RCR) | payer MEDICAID, SELFPAY ==
--- NOTE | 2023-03-23 09:15 | HOLTER_ITS ---
APPROVED REPORT Conclusion This is a 48-hour Holter monitor ordered for dizziness and bradycardia Rhythm throughout is sinus with an average heart rate of 82. Minimum was 63, maximum 127 There were rare ventricular ectopic beats There were occasional atrial premature beats There was no atrial fibrillation, no SVT, no high-grade AV block, no pauses greater than 3 seconds No patient symptoms were reported
== END 2023-04-11 23:59 | disposition home or self-care (01) ==
LOC: CARDOPNVT 09:24
PROVIDERS: PCP Nurse Practitioner Family; Visit Provider Nurse Practitioner Family
DX: R00.1 Bradycardia, unspecified (principal); R42 Dizziness and giddiness
CPT/HCPCS: 93225; 93226